=== PATIENT | male | born 1960 | race Caucasian/White ===

== ENCOUNTER 2023-07-06 12:07 | Emergency (ER) | payer OTHER, SELFPAY ==
[2023-07-06 12:08] VITALS: BP 158/94; PULSE 77; RESP 22; TEMP 35.7; O2SAT 96; BMI 35.3
--- NOTE | 2023-07-06 12:36 | ED.VIS.GI ---
HPI HPI - GI History of Present Illness Chief Complaint: Abd Pain Narrative Narrative: -year-old male with history of hypertension presenting with right-sided abdominal pain. He states in the right flank. Patient states is ongoing for about 2 weeks but is intermittent. He states today is the worst of it. He became sweaty and nauseous. Denies history of kidney stones. Denies history of appendicitis. No intra-abdominal surgeries in the past. Patient states that its not aggravated by eating. He has not had a fever. PFSH PFSH Medical History HTN (hypertension) Home Medications hydrocodone-acetaminophen 5-325mg 5mg-325mg 1 tab PO Q4H PRN PRN Pain 3 days #12 TABLETS 07/06/23 [Rx Last Taken Unknown] metoprolol tartrate 50 mg tablet (Lopressor) 50 mg PO DAILY 07/06/23 [History Last Taken Unknown] ondansetron 4 mg disintegrating tablet 4 mg PO Q8H PRN PRN Nausea #14 tabs 07/06/23 [Rx Last Taken Unknown] Family History Father Cancer Mother Cancer Surgical History no surgical history Social History household members: family housing: house current occupational status: retired Smoking Status: Never smoker ROS ROS ED Constitutional Constitutional ED: Reports sweats; Denies chills or fever(s) Eyes Eyes: Denies blurry vision or change in vision ENT ENT ED: Denies ear pain or sore throat Cardiovascular Cardiovascular: Denies chest pain, palpitations or racing heartbeat Respiratory/Chest Respiratory/Chest: Denies cough, dyspnea or sputum Gastrointestinal Gastrointestinal: Reports abdominal pain and nausea; Denies constipation, diarrhea or vomiting Genitourinary Genitourinary ED: Denies dysuria, hematuria or urinary frequency Musculoskeletal Musculoskeletal: Denies arthralgias, myalgias or neck pain Integumentary Denies abscess, Abrasions or rash Neurologic Neurologic: Denies headache(s), paresthesias or weakness Psychiatric Psychiatric: Denies anxiety, depression, suicidal ideation or suicidal thoughts Endocrine Endocrinology: Denies polydipsia or polyuria EXAM Physical Exam Const Vital Signs: 07/06/23 12:08 Temperature 96.2 F L Temperature Source Temporal Pulse Rate 77 Respiratory Rate 22 H Blood Pressure 158/94 H Blood Pressure Mean 115 Pulse Ox 96 Oxygen Delivery Method Room Air Positive well nourished General Appearance ED: NAD; Negative for pallor HEENT Reports moist mucous membranes normocephalic Eyes PERRL and EOMs intact bilaterally Neck no lymphadenopathy Resp normal respiratory effort and clear to auscultation bilaterally Auscultation: Negative for rales, rhonchi or wheezes Cardio regular rate and regular rhythm GI Palpation: tender RLQ and RUQ Back/Spine no CVA tenderness Neuro CN's II-XII intact bilaterally and moves all extremities Sensorium / Orientation: alert Psych mental status grossly normal Skin no wounds General Skin Exam: Negative for jaundice or pallor MDM MDM MDM Narrative Medical decision making narrative: Right-sided abdominal pain. Differential includes UTI, pyelonephritis, kidney stone, ureteral calculi, constipation, dehydration, electrolyte abnormalities, gallstones, pancreatitis. CBC was obtained to assess white blood cell count, hemoglobin, platelets. CMP to assess liver function, renal function, electrolytes. To assess liver function, renal function, electrolytes. Urinalysis to assess for UTI and occult blood. Patient given Toradol and Zofran. He was also given a liter normal saline. CBC shows a white blood cell count of 11.1. Hemoglobin slightly hemoconcentrated at 17 however no comparison. LFTs, renal function within normal limits. Lipase negative. Urinalysis shows some occult blood. CT of the ab pelvis without contrast was obtained and shows a 1 cm calculus in the right renal pelvis. There is mild hydronephrosis and mild stranding. Patient was given a prescription for [place], Zofran. He is given follow-up with urology. Return precautions were discussed. Impression: 1. 1.0 cm renal calculus 2. Hydronephrosis 3. Nausea Lab Data Attestation: I reviewed the patient's lab results. Labs: Laboratory Results - last 24 hr 07/06/23 07/06/23 12:23 12:44 WBC 11.1 H RBC 5.13 Hgb 17.0 H Hct 51.1 MCV 99.6 H MCH 33.1 H MCHC 33.3 RDW Std Deviation 42.4 RDW Coeff of Raji 11.6 Plt Count 216 MPV 10.9 Immature Gran % (Auto) 0.400 Neut % (Auto) 71.2 H Lymph % (Auto) 17.5 L [place] % (Auto) 7.3 Eos % (Auto) 2.5 Baso % (Auto) 1.1 H Absolute Neuts (auto) 7.9 H Absolute Lymphs (auto) 1.94 Nucleated RBC % 0 Sodium 137 Potassium 3.8 Chloride 108 H Carbon Dioxide 25.0 Anion Gap 4 L BUN 12 Creatinine 1.09 Estim Creat Clear Calc 65.04 Est GFR (MDRD) Af Amer 89 Est GFR (MDRD) Non-Af 73 BUN/Creatinine Ratio 11.0 Glucose 155 H Calcium 8.3 L Total Bilirubin 0.60 AST 22 ALT 21 Alkaline Phosphatase 88 Total Protein 6.4 Albumin 3.2 Globulin 3.2 Albumin/Globulin Ratio 1.0 Lipase 26 Urine Color Yellow Urine Clarity Clear Urine pH 6.0 Ur Specific [place] 1.025 Urine Protein 30 H Urine Glucose (UA) Normal Urine Ketones Negative Urine Occult Blood 50 H Urine Nitrite Negative Urine Bilirubin 3 H Urine Urobilinogen Normal Ur Leukocyte Esterase Negative Urine RBC 0-5 SEEN Urine WBC 0 SEEN Ur Squamous Epith Cells 0-5 SEEN Urine Bacteria 0 SEEN Urine Mucus 1+ Radiography Diagnostic Testing: Clinical Impression(s) from Imaging Studies Abdomen/Pelvis CT 07/06/23 13:06 IMPRESSION: 1 cm calculus in the right renal pelvis causing mild degree right hydronephrosis and mild perinephric stranding. Small gallstone seen along the dependent portion of the gallbladder lumen. Prostatic enlargement. Electronically Signed: Ash Buenrostro MD at 13:56 EDT , Discharge Plan Triage Chief Complaint: Abd Pain ED Provider: Chandana Richards Dx/Rx/DC Orders Instructions: ED Kidney Stone w/ Colic Prescriptions: New hydrocodone-acetaminophen 5-325 mg tablet 1 tab PO Q4H PRN PRN (Reason: Pain) 3 Days Qty: 12 0RF ondansetron 4 mg tablet,disintegrating 4 mg PO Q8H PRN PRN (Reason: Nausea) Qty: 14 0RF No Action metoprolol tartrate [Lopressor] 50 mg tablet 50 mg PO DAILY Primary Care Provider: Care Physician,No Primary Referrals: Salvatore Werner MD [Med Staff - Active Staff] - 3-5 Days NOT,DEFINED [Non-Staff] - Disposition Disposition: Home, Self Care
[2023-07-06 12:46] LABS: Absolute Lymphocyte Count 1.94 X10^3/uL (0.83-4.51); Absolute Neutrophil Count 7.9 X10^3/uL (2.0-7.7); Basophil# 0.12 X10^3/uL; Basophil% 1.1 % (0-1); Eosinophil# 0.28 X10^3/uL; Eosinophils% 2.5 % (0-5); Hematocrit 51.1 % (40-54); Lymphocyte # 1.94 X10^3/ul (0.83-4.51); Lymphocyte % 17.5 % (19-41); Mean Corp Hgb Conc 33.3 g/dL (32-36); Mean Corpuscular Hgb 33.1 pg (27.0-32.0); Mean Corpuscular Volume 99.6 fL (80-94); Mean Platelet Vol. 10.9 fl (6.2-12.0); Monocyte# 0.81 X10^3/uL; Monocyte% 7.3 % (0-10); NRBC Flagged by Analyzer 0 % (0-5); Neutrophil # 7.92 X10^3/uL (2.7-7.7); Neutrophil % 71.2 % (47-70); Platelet Count 216 K/mm3 (150-450); RBC Distribution Width CV 11.6 % (11.6-14.6); RBC Distribution Width SD 42.4 fl (35.1-43.9); Red Blood Count 5.13 M/mm3 (4.6-6.2); White Blood Count 11.1 K/mm3 (4.4-11.0)
[2023-07-06 12:52] LABS: Bacteria 0 SEEN /hpf (None Seen); White Blood Cells 0 SEEN /hpf (0-5)
[2023-07-06] MEDS: 0.9% Normal Saline (1000mL) 1,000 ML 1000 ML IV (12:52)
[2023-07-06] MEDS: Ondansetron 4 MG/2 ML Vial IV (12:52)
[2023-07-06] MEDS: Ketorolac 30 MG/ML Syringe 15 MG IV (12:53)
[2023-07-06 13:02] LABS: AST(SGOT) 22 U/L (15-37); Alanine Aminotransfer ALT/SGPT 21 U/L (16-61); Albumin, Serum 3.2 g/dL (3.2-5.0); Alkaline Phosphatase 88 U/L (45-117); Anion Gap 4 (5-15); BUN 12 mg/dL (7-18); Calcium,Total 8.3 mg/dL (8.5-10.1); Chloride 108 mmol/L (98-107); Creatinine, Serum 1.09 mg/dL (0.70-1.30); EST Glomerular Filtration Rate 73 mL/min (>60); Est Glom Filt Rate - Afr Amer 89 mL/min (>60); Estimated Creatinine Clearance 65.04 ml/min; Globulin 3.2 g/dL (2.2-4.2); Glucose 155 mg/dL (74-106); Lipase 26 U/L (13-75); Potassium 3.8 mmol/L (3.5-5.1); Protein, Total 6.4 g/dL (6.4-8.2); Sodium Level 137 mmol/L (136-145)
[2023-07-06 13:02] LABS: Color, Urine Yellow (Yellow); Glucose, Dipstick Normal (Normal); Ketone-Dipstick Negative (Negative); Leukocyte Esterase-Dipstick Negative /ul (Negative); Nitrite-Dipstick Negative (Negative); Occult Blood-Urine 50 /ul (Negative); Protein-Dipstick 30 mg/dl (Negative); Specific Gravity, Urine 1.025 (1.002-1.030); Urine Clarity Clear (Clear); Urine Urobilinogen Normal (Normal)
[2023-07-06 13:05] LABS: Urine Bilirubin Dipstick 3 mg/dL (Negative)
--- NOTE | 2023-07-06 13:06 | CT_ITS ---
STUDY: CT ABDOMEN AND PELVIS WITHOUT CONTRAST REASON FOR EXAM: Male, 62 years old. Right flank pain RADIATION DOSAGE (If Supplied By Facility): CTDIvol = ( 18.17 ) mGy, DLP = ( 871.34 ) mGycm TECHNIQUE: Transaxial images were obtained from the dome of the diaphragm to the symphysis pubis without oral contrast, and without intravenous contrast. Sagittal and coronal images were reconstructed. Individualized dose optimization techniques were used for this CT. COMPARISON: None. FINDINGS: The visualized lung bases are unremarkable. The visualized portions of the heart are within normal limits. Normal liver. There are small gallstones along the dependent portion of the gallbladder lumen.. Normal spleen. Normal pancreas. Normal bilateral adrenal glands. There is a 1 cm calculus in the right renal pelvis causing a mild degree of right hydronephrosis. Right perinephric stranding. Normal left kidney. Normal visualized stomach. Normal small intestine. Normal colon. The appendix is visualized and appears normal. Normal abdominal aorta. Normal inferior vena cava. Normal retroperitoneum. Mild degree of bladder wall thickening although the bladder is not completely distended. There is enlargement of the prostate gland. It measures 4.7 cm x 3.6 cm. Central prostatic calcification. There is a small umbilical hernia containing fat. Normal osseous structures. CT/Abdomen/Pelvis without Cont IMPRESSION: 1 cm calculus in the right renal pelvis causing mild degree right hydronephrosis and mild perinephric stranding. Small gallstone seen along the dependent portion of the gallbladder lumen. Prostatic enlargement. Electronically Signed: Ash Buenrostro MD at 13:56 EDT ,
[2023-07-06 13:14] LABS: Mucous, Urine 1+ /hpf (<or=2+); Red Blood Cells-Urine 0-5 SEEN /hpf (0-5); Squamous Epithelial Cells - UA 0-5 SEEN /hpf (0-5)
[2023-07-06 14:36] VITALS: RESP 16
== END 2023-07-06 14:37 | disposition home or self-care (01) ==
PROVIDERS: Emergency Provider Student in an Organized Health Care Education/Training Program; Visit Provider Student in an Organized Health Care Education/Training Program
DX: N13.2 Hydronephrosis with renal and ureteral calculous obstruction (principal); R11.0 Nausea; I10 Essential (primary) hypertension; Z79.899 Other long term (current) drug therapy
CPT/HCPCS: 74176; 80053; 81001; 83690; 85025; 96361; 96374; 96375; 99283; J7030; A4216; J2405